=== PATIENT | male | born 1970 | race Hispanic/Latino ===

== ENCOUNTER 2020-09-19 18:39 | Emergency (ER) | payer OTHER ==
--- NOTE | 2020-09-20 07:25 | EDPHYS ---
Physician Documentation [facility] Name: Marquis Lam Jr Age: 50 yrs Sex: Male : 1970 Arrival Date: 09/19/2020 Time: 18:44 Bed 19 Private MD: ED Physician Eh Matute HPI: 09/19 22:12 This 50 yrs old presents to ER via Ambulatory with complaints of R/O COVID, Respiratory kb Issue. 22:12 The patient or guardian reports flu symptoms, low-grade fever, myalgias. Onset: The kb symptoms/episode began/occurred yesterday. Severity of symptoms: At their worst the symptoms were moderate, in the emergency department the symptoms are unchanged. Modifying factors: The symptoms are alleviated by nothing, the symptoms are aggravated by nothing. Associated signs and symptoms: Pertinent positives: fever, Pertinent negatives: chest pain, diarrhea, ear ache, nausea, rhinorrhea, sore throat, vomiting. The patient has not experienced similar symptoms in the past. The patient has not recently seen a physician. Pt reports fever, chills, headache and body aches that started yesterday. Work sent him to get a flu and covid test. Historical: - Allergies: 19:00 No Known Allergies; vg1 - PMHx: 19:00 Hypertension; vg1 - PSHx: 19:00 Right leg; vg1 - Immunization history:: Adult Immunizations. - Social history:: Smoking status: Patient denies any tobacco usage or history of. ROS: 22:12 Cardiovascular: Negative for chest pain, palpitations, and edema, Respiratory: Negative kb for shortness of breath, cough, wheezing, and pleuritic chest pain, Abdomen/GI: Negative for abdominal pain, nausea, vomiting, diarrhea, and constipation, Back: Negative for injury and pain, MS/Extremity: Negative for injury and deformity, Skin: Negative for injury, rash, and discoloration. 22:12 Constitutional: Positive for body aches, chills, fatigue, fever, malaise. 22:12 Neuro: Positive for headache. Exam: 22:12 Constitutional: This is a well developed, well nourished patient who is awake, alert, kb and in no acute distress. Head/Face: Normocephalic, atraumatic. ENT: Nares patent. No nasal discharge, no septal abnormalities noted. Tympanic membranes are normal and external auditory canals are clear. Oropharynx with no redness, swelling, or masses, exudates, or evidence of obstruction, uvula midline. Mucous membranes moist. Chest/axilla: Normal chest wall appearance and motion. Nontender with no deformity. No lesions are appreciated. Cardiovascular: Regular rate and rhythm with a normal S1 and S2. No gallops, murmurs, or rubs. Normal PMI, no JVD. No pulse deficits. Respiratory: Lungs have equal breath sounds bilaterally, clear to auscultation and percussion. No rales, rhonchi or wheezes noted. No increased work of breathing, no retractions or nasal flaring. Abdomen/GI: Soft, non-tender, with normal bowel sounds. No distension or tympany. No guarding or rebound. No evidence of tenderness throughout. Skin: Warm, dry with normal turgor. Normal color with no rashes, no lesions, and no evidence of cellulitis. MS/ Extremity: Pulses equal, no cyanosis. Neurovascular intact. Full, normal range of motion. Neuro: Awake and alert, GCS 15, oriented to person, place, time, and situation. Cranial nerves II-XII grossly intact. Motor strength 5/5 in all extremities. Sensory grossly intact. Cerebellar exam normal. Normal gait. Vital Signs: 18:52 BP 151 / 102; Pulse 101; Resp 20; Temp 100.1; Pulse Ox 99% on R/A; Weight 92.99 kg; vg1 Height 5 ft. 8 in. (172.72 cm); Pain 1/10; 21:25 BP 150 / 102; Pulse 108; Resp 16; Temp 99.3(O); Pulse Ox 99% on R/A; jb4 18:52 Body Mass Index 31.17 (92.99 kg, 172.72 cm) vg1 MDM: 19:24 Patient medically screened. kb 22:12 Data reviewed: vital signs, nurses notes. Data interpreted: Pulse oximetry: on room air kb is 99 %. Interpretation: normal. Counseling: I had a detailed discussion with the patient and/or guardian regarding: the historical points, exam findings, and any diagnostic results supporting the discharge/admit diagnosis, lab results, the need for outpatient follow up, a family practitioner, to return to the emergency department if symptoms worsen or persist or if there are any questions or concerns that arise at home. Administered Medications: No medications were administered Disposition: 09/20 07:49 Co-signature as Attending Physician, Eh Matute MD I agree with the assessment and clara plan of care. Disposition: 09/19/20 20:54 Discharged to Home. Impression: Acute upper respiratory infection, unspecified. - Condition is Stable. - Discharge Instructions: Upper Respiratory Infection, Adult, Orkq-us-Sava, COVID-19. - Medication Reconciliation Form, Thank You Letter, Antibiotic Education, Prescription Opioid Use form. - Follow up: Emergency Department; When: As needed; Reason: Worsening of condition. Follow up: Private Physician; When: 2 - 3 days; Reason: Recheck today's complaints, Continuance of care, Re-evaluation by your physician. Signatures: Cris Herbert, SWEEPER DRIVER-C SWEEPER DRIVER-Eh Olivera MD MD cha Bryson, James, RN RN jb4 Suzan Anguiano RN RN vg1 Corrections: (The following items were deleted from the chart) 09/19 21:27 20:54 09/19/2020 20:54 Discharged to Home. Impression: Acute upper respiratory jb4 infection, unspecified. Condition is Stable. Forms are Medication Reconciliation Form, Thank You Letter, Antibiotic Education, Prescription Opioid Use. Follow up: Emergency Department; When: As needed; Reason: Worsening of condition. Follow up: Private Physician; When: 2 - 3 days; Reason: Recheck today's complaints, Continuance of care, Re-evaluation by your physician. kb
--- NOTE | 2020-09-20 07:25 | ER ---
Nurse's Notes [facility] Name: Marquis Lam Jr Age: 50 yrs Sex: Male : 1970 Arrival Date: 09/19/2020 Time: 18:44 Bed 19 Private MD: Diagnosis: Acute upper respiratory infection, unspecified Presentation: 09/19 18:52 Chief complaint: Patient states: Patient states thinks has an upper respiratory vg1 infection. Patient states has chills, non productive cough, chills, h/a, runny nose, can taste food but cant smell. Coronavirus screen: Client denies travel out of the [place] in the last 14 days. chills, cough unrelated to allergies, headache, runny nose. Ebola Screen: Patient negative for fever greater than or equal to 101.5 degrees Fahrenheit, and additional compatible Ebola Virus Disease symptoms. Initial Sepsis Screen: Does the patient meet any 2 criteria? No. Patient's initial sepsis screen is negative. Does the patient have a suspected source of infection? No. Patient's initial sepsis screen is negative. Risk Assessment: Do you want to hurt yourself or someone else? Patient reports no desire to harm self or others. Onset of symptoms was September 18, 2020. 18:52 Method Of Arrival: Ambulatory vg1 18:52 Acuity: JULI 3 vg1 Triage Assessment: 18:52 General: Appears in no apparent distress. Behavior is calm, cooperative. Pain: vg1 Complains of pain in headache Pain currently is 1 out of 10 on a pain scale. Neuro: Level of Consciousness is awake, alert, obeys commands, Oriented to person, place, time, situation. Respiratory: Airway is patent Respiratory effort is even, unlabored. Historical: - Allergies: 19:00 No Known Allergies; vg1 - PMHx: 19:00 Hypertension; vg1 - PSHx: 19:00 Right leg; vg1 - Immunization history:: Adult Immunizations. - Social history:: Smoking status: Patient denies any tobacco usage or history of. Screenin:30 Abuse screen: Denies threats or abuse. Nutritional screening: No deficits noted. jb4 Tuberculosis screening: No symptoms or risk factors identified. Fall Risk None identified. Assessment: 19:24 General: Appears in no apparent distress. comfortable, Behavior is calm, cooperative, jb4 appropriate for age. Pain: Denies pain. Neuro: Level of Consciousness is awake, alert, obeys commands, Oriented to person, place, time, situation. Cardiovascular: Patient's skin is warm and dry. Respiratory: Airway is patent Respiratory effort is even, unlabored, Respiratory pattern is regular, symmetrical. GI: No signs and/or symptoms were reported involving the gastrointestinal system. : No signs and/or symptoms were reported regarding the genitourinary system. EENT: No signs and/or symptoms were reported regarding the EENT system. Derm: Skin is intact, Skin is pink, warm \T\ dry. Musculoskeletal: Circulation, motion, and sensation intact. Range of motion: intact in all extremities. 20:56 Reassessment: Patient appears in no apparent distress at this time. Patient and/or jb4 family updated on plan of care and expected duration. Pain level reassessed. Patient is alert, oriented x 3, equal unlabored respirations, skin warm/dry/pink. Vital Signs: 18:52 BP 151 / 102; Pulse 101; Resp 20; Temp 100.1; Pulse Ox 99% on R/A; Weight 92.99 kg; vg1 Height 5 ft. 8 in. (172.72 cm); Pain 1/10; 21:25 BP 150 / 102; Pulse 108; Resp 16; Temp 99.3(O); Pulse Ox 99% on R/A; jb4 18:52 Body Mass Index 31.17 (92.99 kg, 172.72 cm) vg1 ED Course: 18:44 Patient arrived in ED. ag5 18:56 Triage completed. vg1 19:00 Cris Herbert [facility]NP-C [facility]. kb 19:00 Eh Matute MD is Attending Physician. kb 19:01 Arm band placed on. vg1 19:30 Patient has correct armband on for positive identification. Bed in low position. Call jb4 light in reach. Side rails up X 1. Pulse ox on. NIBP on. 19:50 Flu and/or RSV swab sent to lab. jp3 20:54 Tesfaye Cruz, RN is Primary Nurse. jb4 21:26 No provider procedures requiring assistance completed. Patient did not have IV access jb4 during this emergency room visit. Administered Medications: No medications were administered Outcome: 20:54 Discharge ordered by . kb 21:26 Discharged to home ambulatory. jb4 21:26 Condition: stable 21:26 Discharge instructions given to patient, Instructed on discharge instructions, follow up and referral plans. Demonstrated understanding of instructions, follow-up care. 21:27 Patient left the ED. jb4 Addendum: 09/22/2020 10:08 Addendum: COVID-19 Result: Positive result giiven to ED physician to notify pt. i w Physician: Eh Matute MD Physician was able to contact pt and pt was notified of positive COVID-19 swab result. Physician answered pt questions. Signatures: Cris Herbert, ANNEALING TORCH OPERATOR-C ANNEALING TORCH OPERATOR-Ckb Olivia Negro, RN RN iw Tesfaye Cruz, RN RN jb4 Didier Lepe Ajare 5 Suzan Anguiano, RN RN vg1 Corrections: (The following items were deleted from the chart) 09/19 18:59 18:52 Chief complaint: Patient states: Patient states thinks has an upper respiratory vg1 infection. Patient states has chills, non productive cough, can taste food but cant smell. vg1
== END 2020-09-19 21:27 | disposition home or self-care (01) ==
LOC: ER 18:39
DX: U07.1 COVID-19 (principal); J06.9 Acute upper respiratory infection, unspecified; I10 Essential (primary) hypertension
CPT/HCPCS: 87804 ×2; 99283; U0002